=== PATIENT | male | born 1975 | race Caucasian/White ===

== ENCOUNTER 2017-11-18 09:13 | Emergency (ER) | payer SELFPAY ==
[~2017-11-18] VITALS: Ht 180.3 cm; Wt 126.1 kg
[~2017-11-18 09:13] MED LIST: ASPIRIN81 M2 PO; BENTYL10 MG PO; MEN'S ONE DAIL1 EACH PO; MIRALAX17 GM PO; NAPROSYN500 MG PO; NOHOMEMEDS; TORADOL10 MG PO; ULTRAM50 MG PO
[2017-11-18 09:31] VITALS: BP 151/107
[2017-11-18 10:02] LABS: APPEARANCE CLEAR ((CLEAR)); BILIRUBIN NEGATIVE; BLOOD NEGATIVE; COLOR YELLOW ((YELLOW)); GLUCOSE (STRIP) NEGATIVE; KETONES NEGATIVE; LEUKOCYTES NEGATIVE; NITRITE NEGATIVE; PROTEIN (STRIP) NEGATIVE; SPECIFIC GRAVITY 1.026 (1.000-1.030); UROBILINOGEN 0.2 MG/DL (0.2-1.0)
[2017-11-18 13:19] LABS: HEMATOCRIT 42.2 % (38.0-50.0); HEMOGLOBIN 14.6 G/DL (12.5-16.6); MCH 29.8 PG (29.0-34.0); MCHC 34.6 G/DL (30.0-36.0); MCV 86.1 FL (86-99); PLATELET COUNT 219 K/uL (156-360); RBC DIS.WIDTH-CV 12.7 % (11.8-14.6); RBC DIS.WIDTH-SD 39.6 % (39-53); WHITE BLOOD COUNT 7.5 K/uL (4.1-10.2)
[2017-11-18 13:29] LABS: CHLORIDE 103 mEq/L (99-109); SODIUM 137 mEq/L (136-147)
[2017-11-18 13:31] LABS: GLUCOSE 101 mg/dL (70-99)
[2017-11-18 13:35] LABS: GFR ESTIMATE (CALCULATED) > 59 mL/min/ (58.99-99999)
[2017-11-18 13:36] LABS: UREA NITROGEN (BUN) 17 mg/dL (9-23)
[2017-11-18 13:43] LABS: TROP-I INTERPRETATION NEGATIVE; TROPONIN-I 0.02 ng/mL (0.0-0.30)
[2017-11-18] MEDS ORDERED: MOTRIN800 MG PO (14:20)
[2017-11-18] MEDS ORDERED: FLEXERIL10 MG PO (14:20)
== END 2017-11-18 14:32 | disposition home or self-care (01) ==
LOC: EME 09:13
PROVIDERS: Nurse Practitioner Family
DX: S39.012A Strain of muscle, fascia and tendon of lower back, initial encounter (principal); M51.26 Other intervertebral disc displacement, lumbar region; K21.9 Gastro-esophageal reflux disease without esophagitis; F17.200 Nicotine dependence, unspecified, uncomplicated
CPT/HCPCS: 71046; 80048; 81003; 84484; 85027; 99281; 99284